=== PATIENT | female | born 1960 | race Caucasian/White ===

== ENCOUNTER 2023-06-23 08:59 | Outpatient (REF) | payer MEDICARE, OTHER, SELFPAY ==
[2023-06-23 09:20] LABS: % Basophils 0.6 % (0-2); % Eosinophils 3.1 % (0-6); % Immature Granulocytes 0.4 % (0-0.5); % Lymphocytes 40.4 % (20.5-51.1); % Monocytes 7.3 % (1.7-9.3); % Neutrophils 48.2 % (42.2-75.2); Absolute Eosinophils 0.2 10^3/uL (0-0.7); Absolute Lymphocytes 2.8 10^3/uL (1.2-3.4); Absolute Monocytes 0.5 10^3/uL (0.1-0.6); Absolute Neutrophils 3.3 10^3/uL (1.4-6.5); Hematocrit 41.4 % (37.0-47.0); Hemoglobin 14.1 g/dL (12.0-16.0); Mean Corp Hgb Conc. 34.1 g/dL (33.0-37.0); Mean Corpuscular Hgb 31.8 pg (27.0-31.0); Mean Corpuscular Volume 93.2 fL (81.0-99.0); Mean Platelet Volume 9.3 fL (7.4-10.4); Nucleated Red Blood Cells % 0 %; Platelet Count 207 10^3/uL (130-400); Red Blood Cell Count 4.44 10^6/uL (4.20-5.40); Red Cell Dist. Width 12.8 % (11.5-14.5); White Blood Cell Count 6.8 10^3/uL (4.8-10.8)
[2023-06-23 09:35] VITALS: BP 128/58; BP_SYST 77
[2023-06-23 09:44] LABS: INR 0.96; PT 12.6 Sec (11.4-14.6)
[2023-06-23 09:45] LABS: Erythrocyte Sed Rate 1 mm/hour (0-20)
[2023-06-23 10:37] VITALS: BP 117/63; BP_SYST 62
[2023-06-23 11:00] VITALS: BP 107/55; BP_SYST 63
[2023-06-23 11:26] LABS: CSF Clarity Clear; CSF Color Colorless; CSF Tube # 1; White Cell Count/CSF 0 mm^3 (0-5)
[2023-06-23 11:30] LABS: Red Cell Count/CSF 199 mm^3
[2023-06-23 11:35] VITALS: BP 122/63
[2023-06-23 11:43] LABS: CSF Color Colorless; CSF Tube # 4
[2023-06-23 11:44] LABS: CSF Tube # Clarity Clear; Red Cell Count/CSF 5 mm^3; White Blood Cell Count/CSF 0 mm^3 (0-5)
[2023-06-23 12:19] LABS: Spinal Fluid Glucose 53 mg/dl (40-70); Spinal Fluid Protein 59 mg/dl (12-60)
[2023-06-23 12:35] VITALS: BP 110/58
[2023-06-25 23:14] LABS: Albumin Index 6.5 ratio (0.0-9.0); Albumin, CSF 28 mg/dL (0-35); Albumin, Serum 4281 mg/dL (3500-5200); CSF IgG Synthesis Rate <0.0 mg/d (<=8.0); CSF IgG/Albumin Ratio 0.18 ratio (0.09-0.25); CSF Oligoclonal Bands Negative (Negative); CSF Oligoclonal Bands Number Matching Bands (0-1); IgG 1386 mg/dL (768-1632); IgG, CSF 4.9 mg/dL (0.0-6.0)
[2023-06-26 01:06] LABS: Myelin Basic Protein, CSF 2.31 ng/mL (0.00-5.50)
[2023-06-26 01:44] LABS: Angiotensin-1- Converting, CSF 1.8 U/L (0.0-2.5)
[2023-06-26 04:59] LABS: CSF VDRL (T. pallidum) Non Reactive (Non Reactive)
[2023-06-26 20:25] LABS: Lyme Disease DNA by PCR Not Detected; Lyme Source CSF
== END 2023-06-23 13:05 | disposition home or self-care (01) ==
LOC: RADI 08:59
PROVIDERS: ATTENDING PHYSICIAN Specialist
DX: R51.9 Headache, unspecified (principal); R42 Dizziness and giddiness; R26.89 Other abnormalities of gait and mobility; D68.8 Other specified coagulation defects
CPT/HCPCS: 36415; 62328; 82040; 82042; 82164; 82784; 82945; 83873; 83916; 84157; 85025; 85610; 85652; 86592; 87476; 89051

== ENCOUNTER → 2024-01-26 10:35 | Outpatient (REF) | payer MEDICARE, OTHER, SELFPAY | LOC: WDC 10:35 | PROVIDERS: ATTENDING PHYSICIAN Obstetrics & Gynecology Gynecology; FAMILY PHYSICIAN Physician Assistant Medical | DX: Z12.31 Encounter for screening mammogram for malignant neoplasm of breast (principal); R73.09 Other abnormal glucose; Z78.0 Asymptomatic menopausal state | CPT/HCPCS: 77063; 77067; 77080 ==

== ENCOUNTER 2024-05-31 06:25 | Day surgery (SDC) | payer MEDICARE, OTHER, SELFPAY | END 2024-05-31 13:58 | disposition home or self-care (01) | LOC: GI 06:25 | PROVIDERS: ATTENDING PHYSICIAN Internal Medicine | DX: Z12.11 Encounter for screening for malignant neoplasm of colon (principal); D12.2 Benign neoplasm of ascending colon; D12.3 Benign neoplasm of transverse colon; K63.5 Polyp of colon; K63.89 Other specified diseases of intestine; K57.30 Diverticulosis of large intestine without perforation or abscess without bleeding; Z86.0101 Personal history of adenomatous and serrated colon polyps | CPT/HCPCS: 45385; 45380; 88305 ==

== ENCOUNTER → 2024-07-28 14:45 | Outpatient (REF) | payer MEDICARE, OTHER, SELFPAY | LOC: RAD 14:45 | PROVIDERS: ATTENDING PHYSICIAN Student in an Organized Health Care Education/Training Program; FAMILY PHYSICIAN Physician Assistant Medical | DX: I73.01 Raynaud's syndrome with gangrene (principal); R42 Dizziness and giddiness; R53.83 Other fatigue | CPT/HCPCS: 71046; 73120 ==

== ENCOUNTER 2024-08-05 10:31 | Emergency (ER) | payer MEDICARE, OTHER, SELFPAY ==
[2024-08-05 10:35] VITALS: BP 158/91
[2024-08-05 11:20] VITALS: BMI 21.8
--- NOTE | 2024-08-05 11:23 | ED.GENMED ---
History of Present Illness
General
Chief Complaint: Abdominal Symptoms
Source: patient
Exam Limitations: none
Time Seen by Provider: 08/05/24 10:58
Nursing documentation reviewed up to this point in time: agreed with
History of Present Illness
History of Present Illness:
Patient is a 64-year-old female presenting to the emergency department with multiple complaints today. Patient reports waking this morning feeling extremely nauseous with some tightness in her chest. She has not had any vomiting. Patient reports
she has felt this tightness in her chest intermittently over the past few weeks, never with exertional activities. She actually reports that she notices it more when she is sitting and relaxing. She denies any associated shortness of breath,
dizziness, severe back pain.
Last night�patient states she had brief flashing in her vision which resolved spontaneously. At this point she has no visual complaints.
In addition�patient states she has been extremely tired recently. She states last time she had similar symptoms she was positive for Lyme. She denies any known tick bites or rashes.
She was concerned because she had blood pressure of 140/70s which is 'elevated 'for her. She then contacted her primary care explaining her symptoms who recommended that she come to the emergency department for evaluation.
Patient reports significant increase in stress levels over the past few months as she is caring for her alcoholic boyfriend and her ex-, as well.
Past History
Past History
ED Past Medical History: None
ED Past Surgical History: None
Social History
Tobacco: Non-smoker
Alcohol: None
Drug: None
Review of Systems
Review of Systems
Allergies reviewed?: Yes
All Other Systems: ROS reviewed and negative except as documented in HPI and ROS
Phy Exam
Physical Exam
Physical Exam:
Vitals: Hypertensive and mildly tachycardic on arrival, improved by my assessment. Afebrile
General: Patient is well appearing, no acute distress
Skin: Warm and dry, no rashes or lesions
Head: Normocephalic, atraumatic
Eyes: Sclera nonicteric. EOMs intact. No nystagmus.
Throat: Protecting airway
Neck: Normal ROM, no cervical spine tenderness, no meningismus
Cardiac: Regular rate and rhythm, no murmurs. 2+ radial pulses bilaterally
Pulm: Normal respiratory effort, no wheezes, rales, rhonchi heard on exam.
Abdomen: Abdomen soft and nontender.
Extremities: No evidence of cyanosis or edema. Palpable DP pulses bilaterally
Neuro: AAOx3. Grossly intact. Steady gait. Fluid speech. No facial droop or asymmetry. No focal neurologic deficits.
Psychiatric: Anxious appearing.
Course
Orders/Labs/Results
Orders:
Orders
08/05/24 10:40
Electrocardiogram (*1) Urgent
Reason for Study: Palpitations
EKG- Treatment ONCE
08/05/24 11:17
0.9% Sodium Chloride 1000 ml [Nss] 1,000 ml IV BOLUS
Ondansetron Injectable [Zofran] 4 mg IV NOW STA
08/05/24 11:34
Complete Blood Count/With Diff Urgent
Comprehensive Metabolic Panel Urgent
Free T4 Urgent
Lipase Urgent
Lyme Progressive Urgent
TSH Reflex To Free T4 Urgent
Troponin I Urgent
08/05/24 14:34
Troponin I Urgent
08/05/24 14:35
Electrocardiogram (*1) Urgent
Reason for Study: Chest Pain
EKG- Treatment ONCE
Abnormal Lab Results
08/05/24
11:34
MCH 31.6 H pg
(27.0-31.0)
Chloride 109 H mmol/L
(98-107)
ALT 36 H U/L
(0-35)
TSH (Reflex) 0.03 L uIU/ml
(0.47-4.68)
08/05/24 11:34
08/05/24 11:34
Vital Signs
Initial and Last Documented VS:
Initial Vital Signs
Temp Pulse Resp BP Pulse Ox
98.4 F 107 18 158/91 100
08/05/24 10:35 08/05/24 10:35 08/05/24 10:35 08/05/24 10:35 08/05/24 10:35
Last Documented Vital Signs
Temp Pulse Resp BP Pulse Ox
98.4 F 76 16 127/59 100
08/05/24 10:35 08/05/24 12:44 08/05/24 12:44 08/05/24 12:44 08/05/24 12:44
MDM/Problems Addressed
Differential Diagnosis Includes:
Not limited to: GERD, muscle strain, pleurisy, anxiety, acute coronary syndrome, etc.
MDM/Problems Addressed:
64-year-old female presenting with atypical chest tightness and nausea. No exertional component or associated shortness of breath, lightheadedness, fevers. No vomiting. She does report significant increase life stressors recently. Currently
undergoing rheumatologic workup for multitude of symptoms. Patient mildly tachycardic and hypertensive on arrival although improved by my initial evaluation. Physical exam as above. Patient somewhat anxious although in no apparent distress.
Cardio/pulmonary assessment unremarkable. Abdomen is soft and nontender with specifically no upper abdominal tenderness. No neurologic deficits on exam. No lower extremity edema. Differential broad at this time however will check labs, TSH.
Will send troponin. Did review chest x-ray performed 07/28/2024 outpatient without any acute abnormalities. Do not feel repeat chest imaging indicated today. Will give fluids and Zofran.
Update: Labs without clinically significant abnormalities. Negative serial troponins x 2 with nonischemic EKGs. Low suspicion for ACS. Do not suspect central process. I feel acute intra-abdominal etiology unlikely given patient is afebrile with
no leukocytosis and benign abdominal exam. Workup in ED negative. Did have lengthy discussion with patient who endorses significant life stressors which she feels may be contributing to her symptoms. I feel anxiety is likely playing a role.
Patient denies any SI, HI. She has excellent follow-up with psychiatry and outpatient therapy. Do not suspect acute cardio/pulmonary emergency or central process. Patient will be discharged home with very strict return precautions. Advised close
follow-up with primary care, rheumatology as scheduled. Patient comfortable with plan expresses verbal understanding.
Chronic conditions affecting care:
Anxiety
Acute Exacerbation and/or Progression of Chronic Illness:
N/A
*Pulse Oximetry
Patient hypoxic: no
*EKG
Interpreted by ED Provider?: Yes
EKG Intrepretation Date: 08/05/24
Interpretation: normal
Comparison EKG: no changes
Heart Rate: 84
Rate: normal
Rhythm: sinus and sinus arrhythmia
Cornelia: normal axis
Interval: normal QT interval
QRS Pattern: normal QRS
Ischemia: no ischemia
*Tribunal Member Interpretation
Rate: Tribunal Member- N/A
*Critical Care Note
Total Time (30-74mins, 75-104mins- exclusive of procedures): Not Applicable
Data Reviewed
Review of Other/Old Records Reveals: Radiology Studies (Chest x-ray from 07/28/2024-no acute abnormalities)
Patient Management
Escalation/DeEscalation of care consider admission/obs:
Admit not indicated
ED Attending Note
-
Portions of this chart may have been created with voice recognition software.� Occasional wrong word or��sound alike� substitutions may have occurred due to the inherent limitations of voice recognition software.
Discharge Plan
Departure
Patient Disposition: Home (Routine Discharge)
Date of Disposition: 08/05/24
Time of Disposition: 15:28
Patient with high blood pressure during this ER visit?: Yes
Condition: Good
Covid-19: Not Applicable
Discharge Problem:
Chest pain, Nausea
Instructions: Nausea and vomiting in adults - ED discharge instructions, Anxiety in adults - ED discharge instructions, Chest Pain PCP Follow Up
Prescriptions:
No Action
B-complex with vitamin C 1 CAPLET tablet
1 cap PO DAILY
calcium carbonate-vitamin D3 [Oyster Shell Calcium-Vit D3] 500 MG tablet
500 mg PO BID
estradiol-norethindrone acet 1 EACH tablet
1 tab PO DAILY
High Potency Probiotic 1 CAP capsule
1 cap PO DAILY
glucosamine HCl 1,500 MG tablet
1,500 mg PO DAILY
Airborne (ascorbic acid) 1 EACH tablet,chewable
1 ea PO DAILY
lorazepam 0.5 mg Tablet
0.125 mg PO DAILY PRN (Reason: anxiety)
magnesium 200 mg Tablet
200 mg PO DAILY
ashwagandha extract 120 mg Capsule
1 mg PO DAILY
biotin 2,500 mcg Tablet,Chewable
2,500 mcg PO DAILY
aspirin 81 mg Tablet,Delayed Release (Dr/Ec)
81 mg PO DAILY
Referrals:
Ashley Mcgovern PA-C [Family Provider] - Follow up in 2-3 days
Activity Restrictions/Additional Instructions:
Return to the emergency department with any high fevers, chest pain, shortness of breath, intractable nausea/vomiting, severe headache or visual changes, worsening in current symptoms, or any other concern
- As discussed your lab work in the emergency department showed no acute abnormalities. You had 2 negative troponins. We did send a test for Lyme disease�which we will contact you if this comes back positive.
- It is important stay well-hydrated. Get plenty of rest.
- You should continue to follow-up with your primary care doctor, psychiatrist, and therapist. Take all medications as prescribed.
Monitor your symptoms closely and return to the emergency department with any acute worsening/new symptoms or any other concerns
Interventions
Interventions:
*Risk Screen - Suicide Last Done: 08/05/24 10:35
*General Assessment Last Done: 08/05/24 10:35
*Neglect/Abuse Screening Last Done: 08/05/24 10:35
*Nursing Disposition Last Done: 08/05/24 16:02
RW-Czhxly-Dodaxhwlfg Assessment Last Done: 08/05/24 11:20
Discharge Date and Time
Discharge Date/Time: 08/05/24 16:03
Print Language: EMIRATI
[2024-08-05] MEDS: NSS 1000 IV (11:32)
[2024-08-05] MEDS: ZOFRAN 4 MG IV (11:32)
[2024-08-05 11:45] LABS: % Basophils 0.7 % (0-2); % Eosinophils 2.4 % (0-6); % Immature Granulocytes 0.3 % (0-0.5); % Lymphocytes 35.7 % (20.5-51.1); % Monocytes 6.3 % (1.7-9.3); % Neutrophils 54.6 % (42.2-75.2); Absolute Eosinophils 0.1 10^3/uL (0-0.7); Absolute Lymphocytes 2.1 10^3/uL (1.2-3.4); Absolute Monocytes 0.4 10^3/uL (0.1-0.6); Absolute Neutrophils 3.2 10^3/uL (1.4-6.5); Hematocrit 38.2 % (37.0-47.0); Hemoglobin 13.4 g/dL (12.0-16.0); Mean Corp Hgb Conc. 35.1 g/dL (33.0-37.0); Mean Corpuscular Hgb 31.6 pg (27.0-31.0); Mean Corpuscular Volume 90.1 fL (81.0-99.0); Mean Platelet Volume 9.2 fL (7.4-10.4); Nucleated Red Blood Cells % 0 %; Platelet Count 217 10^3/uL (130-400); Red Blood Cell Count 4.24 10^6/uL (4.20-5.40); Red Cell Dist. Width 12.2 % (11.5-14.5); White Blood Cell Count 5.9 10^3/uL (4.8-10.8)
[2024-08-05 12:06] LABS: ALT (SGPT) 36 U/L (0-35); AST (SGOT) 35 U/L (14-36); Albumin 3.9 g/dl (3.5-5.0); Alkaline Phosphatase 72 U/L (38-126); Blood Urea Nitrogen 16 mg/dl (7-17); Calcium 9.4 mg/dl (8.4-10.2); Carbon Dioxide 28 mmol/L (22-30); Chloride 109 mmol/L (98-107); Estimated Creatinine Clearance 77 ml/min; Glucose 92 mg/dl (70-99); Lipase 124 U/L (23-300); Potassium 3.9 mmol/L (3.5-5.1); Sodium 143 mmol/L (135-145); Total Bilirubin 0.5 mg/dl (0.2-1.3); Total Protein 6.8 g/dl (6.3-8.2); eGFR > 60.00
[2024-08-05 12:12] LABS: Troponin I < 0.012 ng/ml
[2024-08-05 12:34] LABS: TSH Reflex To Free T4 0.03 uIU/ml (0.47-4.68)
[2024-08-05 12:44] VITALS: BP 127/59
[2024-08-05 13:03] LABS: Free T4 0.97 ng/dl (0.78-2.19)
[2024-08-05 15:04] LABS: Troponin I < 0.012 ng/ml
[2024-08-08 11:53] LABS: Lyme Antibody Screen, EIA Negative (Negative)
== END 2024-08-05 16:03 | disposition home or self-care (01) ==
LOC: EMR 10:31
PROVIDERS: Physician Assistant; EMERGENCY PHYSICIAN Emergency Medicine; FAMILY PHYSICIAN Physician Assistant Medical
DX: R07.89 Other chest pain (principal); R11.0 Nausea; R03.0 Elevated blood-pressure reading, without diagnosis of hypertension; F41.9 Anxiety disorder, unspecified
CPT/HCPCS: 99284; 96374; 96361; 80053; 83690; 84439; 84443; 84484; 85025; 86618; 93005

== ENCOUNTER → 2024-10-10 09:20 | Outpatient (REF) | payer MEDICARE, OTHER, SELFPAY ==
[2024-10-10 09:53] LABS: % Basophils 0.8 % (0-2); % Eosinophils 4.1 % (0-6); % Immature Granulocytes 0.3 % (0-0.5); % Lymphocytes 42.1 % (20.5-51.1); % Neutrophils 45.7 % (42.2-75.2); Absolute Basophils 0.1 10^3/uL (0-0.2); Absolute Eosinophils 0.3 10^3/uL (0-0.7); Absolute Lymphocytes 2.8 10^3/uL (1.2-3.4); Absolute Monocytes 0.5 10^3/uL (0.1-0.6); Hematocrit 39.3 % (37.0-47.0); Mean Corp Hgb Conc. 35.6 g/dL (33.0-37.0); Mean Corpuscular Hgb 32.8 pg (27.0-31.0); Mean Platelet Volume 9.5 fL (7.4-10.4); Nucleated Red Blood Cells % 0 %; Platelet Count 222 10^3/uL (130-400); Red Blood Cell Count 4.27 10^6/uL (4.20-5.40); Red Cell Dist. Width 12.2 % (11.5-14.5); White Blood Cell Count 6.6 10^3/uL (4.8-10.8)
[2024-10-10 09:55] LABS: PT 13.5 Sec (11.4-14.6)
[2024-10-10 10:10] VITALS: BP 112/57; BP_SYST 70
[2024-10-10 10:15] VITALS: BMI 21.2
[2024-10-10] MEDS: ATIVAN 0.5 MG IV (10:34)
[2024-10-10 11:24] VITALS: BP 107/63
== END ==
LOC: RADI 09:20
PROVIDERS: ATTENDING PHYSICIAN Internal Medicine Hematology & Oncology; FAMILY PHYSICIAN Physician Assistant Medical
DX: D47.2 Monoclonal gammopathy (principal); D68.8 Other specified coagulation defects
CPT/HCPCS: 88305; 88311; 88312; 36415; 38222; 77012; 85025; 85610; 88313

== ENCOUNTER → 2024-10-11 08:11 | Outpatient (REF) | payer MEDICARE, OTHER, SELFPAY | LOC: RAD 08:11 | PROVIDERS: ATTENDING PHYSICIAN Internal Medicine Hematology & Oncology; FAMILY PHYSICIAN Physician Assistant Medical | DX: D47.2 Monoclonal gammopathy (principal) | CPT/HCPCS: 77075 ==

== ENCOUNTER → 2025-02-03 12:44 | Outpatient (REF) | payer MEDICARE, OTHER, SELFPAY | LOC: WDC 12:44 | PROVIDERS: ATTENDING PHYSICIAN Obstetrics & Gynecology Gynecology; FAMILY PHYSICIAN Physician Assistant Medical | DX: Z12.31 Encounter for screening mammogram for malignant neoplasm of breast (principal) | CPT/HCPCS: 77063; 77067 ==